=== PATIENT | female | born 1975 | race Caucasian/White ===

== ENCOUNTER 2016-09-30 11:37 | Emergency (ER) | payer BC ==
[2016-09-30 11:43] VITALS: BP 117/75
[2016-09-30 12:35] LABS: APPEARANCE,URINE CLEAR; BILIRUBIN,URINE NEGATIVE (NEGATIVE); GLUCOSE, URINE NEGATIVE (NEGATIVE); KETONES,URINE NEGATIVE (NEGATIVE); LEUKOCYTE ESTERASE,URINE NEGATIVE (NEGATIVE); NITRITE,URINE NEGATIVE (NEGATIVE); PROTEIN,URINE NEGATIVE (NEGATIVE); URINE SPECIFIC GRAVITY 1.009; UROBILINOGEN,URINE NEGATIVE mg/dL (<2.0)
[2016-09-30] MEDS ORDERED: KETOROLAC TROMETHAMINE 60 MG/2 ML SDV IM ONE (12:39)
--- NOTE | 2016-09-30 12:59 | ER Document Report ---
ED General - General Chief Complaint: Pain With Urination Stated Complaint: POSSIBLE UTI OR KIDNEY INFECTION Time Seen by Provider: 09/30/16 12:38 Mode of Arrival: Ambulatory Information source: Patient Notes: 40-year-old female who was recently diagnosed with a UTI that is sensitive to Cipro presents with complaints of continued flank pain. Patient notes she did have a fever previously was given a dose of IM Rocephin and started on ciprofloxacin, patient notes pain is still there fever has since resolved, patient notes she is able to take oral antibiotics was sent in for evaluation. Culture sensitivity is less than 0.25 for Cipro TRAVEL OUTSIDE OF THE [place] IN LAST 30 DAYS: No - HPI Onset: Other - 4 days Onset/Duration: Persistent Quality of pain: Achy Severity: Mild Pain Level: 1 Associated symptoms: None Exacerbated by: Denies Relieved by: Denies Similar symptoms previously: Yes Recently seen / treated by doctor: Yes - Related Data Allergies/Adverse Reactions: No Known Allergies Allergy (Unverified 09/30/16 11:43) Past Medical History - Social History Smoking Status: Former Smoker Cigarette use (# per day): No Chew tobacco use (# tins/day): No Smoking Education Provided: No Frequency of alcohol use: None Drug Abuse: None Family History: Reviewed & Not Pertinent Renal/ Medical History: Denies: Hx Peritoneal Dialysis Psychiatric Medical History: Reports: Hx Depression - anxiety; PTSD Review of Systems - Review of Systems Notes: REVIEW OF SYSTEMS: CONSTITUTIONAL : Denies fever, chills, or sweats. Denies recent illness. EENT: Denies eye, ear, throat, or mouth pain or symptoms. Denies nasal or sinus congestion or discharge. Denies throat, tongue, or mouth swelling or difficulty swallowing. CARDIOVASCULAR: Denies chest pain. Denies palpitations or racing or irregular heart beat. Denies ankle edema. RESPIRATORY: Denies cough, cold, or chest congestion. Denies shortness of breath, difficulty breathing, or wheezing. GASTROINTESTINAL: Denies abdominal pain or distention. Denies nausea, vomiting , or diarrhea. Denies blood in vomitus, stools, or per rectum. Denies black, tarry stools. Denies constipation. GENITOURINARY: Admits to burning with urination flank pain FEMALE GENITOURINARY: Denies vaginal bleeding, heavy or abnormal periods, irregular periods. Denies vaginal discharge or odor. MUSCULOSKELETAL: Denies back or neck pain or stiffness. Denies joint pain or swelling. SKIN: Denies rash, lesions or sores. HEMATOLOGIC : Denies easy bruising or bleeding. LYMPHATIC: Denies swollen, enlarged glands. NEUROLOGICAL: Denies confusion or altered mental status. Denies passing out or loss of consciousness. Denies dizziness or lightheadedness. Denies headache. Denies weakness or paralysis or loss of use of either side. Denies problems with gait or speech. Denies sensory loss, numbness, or tingling. Denies seizures. PSYCHIATRIC: Denies anxiety or stress. Denies depression, suicidal ideation, or homicidal ideation. ALL OTHER SYSTEMS REVIEWED AND NEGATIVE. PHYSICAL EXAMINATION: GENERAL: Well-appearing, well-nourished and in no acute distress. HEAD: Atraumatic, normocephalic. EYES: Pupils equal round and reactive to light, extraocular movements intact, conjunctiva are normal. ENT: Nares patent, oropharynx clear without exudates. Moist mucous membranes. NECK: Normal range of motion, supple without lymphadenopathy LUNGS: Breath sounds clear to auscultation bilaterally and equal. No wheezes rales or rhonchi. HEART: Regular rate and rhythm without murmurs ABDOMEN: Soft, nontender, nondistended abdomen. No guarding, no rebound. No masses appreciated. Female : deferred Musculoskeletal: Normal range of motion, no pitting or edema. No cyanosis. NEUROLOGICAL: Cranial nerves grossly intact. Normal speech, normal gait. Normal sensory, motor exams PSYCH: Normal mood, normal affect. SKIN: Warm, Dry, normal turgor, no rashes or lesions noted. Dictation was performed using [employer] voice recognition software Physical Exam - Vital signs Vitals: Temp Pulse Resp BP Pulse Ox 98.2 F 83 16 117/75 97 09/30/16 11:43 09/30/16 11:43 09/30/16 11:43 09/30/16 11:43 09/30/16 11:43 Course - Re-evaluation Re-evalutation: 09/30/16 12:57 This is an overall very well-appearing female no acute distress, she is already on an antibiotic that is sensitive for culture, patient looks well her urinalysis today is completely clean I do not expect any life-threatening issues and will discharge home with pain control After performing a Medical Screening Examination, I estimate there is LOW risk for ACUTE APPENDICITIS, BOWEL OBSTRUCTION, ACUTE CHOLECYSTITIS, PERFORATED DIVERTICULITIS, INCARCERATED HERNIA, PANCREATITIS, PELVIC INFLAMMATORY DISEASE, PERFORATED ULCER, ECTOPIC , or TUBO-OVARIAN ABSCESS, thus I consider the discharge disposition reasonable. Also, there is no evidence or peritonitis , sepsis, or toxicity. I have reevaluated this patient multiple times and no significant life threatening changes are noted. The patient and I have discussed the diagnosis and risks, and we agree with discharging home with close follow-up with the understanding that symptoms and presentations can change. We also discussed returning to the Emergency Department immediately if new or worsening symptoms occur. We have discussed the symptoms which are most concerning (e.g., bloody stool, fever, changing or worsening pain, vomiting) that necessitate immediate return. - Vital Signs Vital signs: Temp Pulse Resp BP Pulse Ox 98.2 F 83 16 117/75 97 09/30/16 11:43 09/30/16 11:43 09/30/16 11:43 09/30/16 11:43 09/30/16 11:43 Discharge - Discharge Clinical Impression: Flank pain, Dysuria Condition: Stable Disposition: HOME, SELF-CARE Instructions: Antispasmodics ([facility]) Additional Instructions: Follow up with your physician tomorrow for further care or return to the ED IMMEDIATELY if symptoms worsen or new concerns occur. If you cannot afford to follow up with your primary care physician a list of low cost clinics have been provided at the end of your discharge papers as well. Prescriptions: Hydrocodone/Acetaminophen [Anthony 5-325 mg Tablet] 1 tab PO Q6 #10 tablet Phenazopyridine HCl [Pyridium 200 mg Tablet] 200 mg PO TID #15 tablet
== END 2016-09-30 13:25 | disposition home or self-care (01) ==
LOC: ER 11:37
DX: R30.0 Dysuria (principal); R10.9 Unspecified abdominal pain; Z87.891 Personal history of nicotine dependence
CPT/HCPCS: 99283; 96372; 81025; 81001; J1885

== ENCOUNTER 2019-05-05 20:13 | Emergency (ER) | payer BC, OTHER ==
[2019-05-05] MEDS ORDERED: KETOROLAC TROMETHAMINE INJ/PF 30 MG/1 ML SDV IV ONE (20:42)
[2019-05-05] MEDS ORDERED: MECLIZINE HCL 25 MG TABLET PO ONE (20:42)
[2019-05-05] MEDS ORDERED: METOCLOPRAMIDE HCL INJ/PF 10 MG/2 ML SDV IV ONE (20:42)
[2019-05-05] MEDS ORDERED: NORMAL SALINE 1000 ML 1,000 ML IV ONE (20:43)
[2019-05-05] MEDS ORDERED: ONDANSETRON 4 MG TAB.RAPDIS PO ONE (20:43)
--- NOTE | 2019-05-05 20:46 | ER Document Report ---
ED Medical Screen (RME) - General Chief Complaint: Ear Pain Stated Complaint: EAR PAIN,DIZZINESS Time Seen by Provider: 05/05/19 20:37 TRAVEL OUTSIDE OF THE [place] IN LAST 30 DAYS: No - HPI Notes: 05/05/19 20:44 43-year-old female to the emergency department with complaints of bilateral ear pain, dizziness, headache, nausea. She states that the ear pain and dizziness has been ongoing for about 2 weeks and she has been under treatment for sinus infection for that time. She been taking Augmentin which has been giving her diarrhea. She states that this morning she woke up with a migraine headache. S he has typical migraines which she usually takes sumatriptan for. She states that she took her sumatriptan but it did not help. She continues to have nausea with this. She states the headache has now gotten out of control and she came to the emergency department for further evaluation and treatment. She denies any chest pain or shortness of breath. She states she has had some difficulty holding down fluids mainly because she feels so poorly that she has not been able to push them. She does not see an research statistician. She states that she has also been taking steroids for her sinus infection as well but nothing seems to be working. I performed a brief medical screening exam on the patient determined that she will need further evaluation by main side provider. I placed initial orders to help expedite her care. - Related Data Allergies/Adverse Reactions: No Known Allergies Allergy (Unverified 09/30/16 11:43) Past Medical History Renal/ Medical History: Denies: Hx Peritoneal Dialysis Psychiatric Medical History: Reports: Hx Depression - anxiety; PTSD Physical Exam - Vital signs Vitals: Temp Pulse Resp BP Pulse Ox 98.0 F 101 H 16 128/79 H 98 05/05/19 20:30 05/05/19 20:30 05/05/19 20:30 05/05/19 20:30 05/05/19 20:30 Course - Vital Signs Vital signs: Temp Pulse Resp BP Pulse Ox 98.0 F 101 H 16 128/79 H 98 05/05/19 20:30 05/05/19 20:30 05/05/19 20:30 05/05/19 20:30 05/05/19 20:30
[2019-05-05] MEDS ORDERED: KETOROLAC TROMETHAMINE 60 MG/2 ML SDV IM ONE (22:37)
[2019-05-06] MEDS ORDERED: BUTALB/ACETAMINOPHEN/CAFFEINE 1 TAB EACH PO ONE (01:28)
--- NOTE | 2019-05-06 02:38 | ER Document Report ---
Entered by DARIEN STOKES SCRIBE 05/06/19 0042 Acting as scribe for:TOSHA MARTINEZ MD ED General - General Chief Complaint: Headache Stated Complaint: EAR PAIN,DIZZINESS Time Seen by Provider: 05/05/19 20:37 Information source: Patient Notes: 43-year-old female presents to the emergency department complaining of headache that started this morning. Patient reports dizziness, diaphoresis, cough, chest pain and diarrhea. Patient states that she has been taking Augmentin for a sinus infection with four days left of her prescription. Patient complains of bilateral pain that radiated from her "neck to her teeth". Patient adds that she is on migraine medication that she has been unable to take due to "[facility] being out of it". TRAVEL OUTSIDE OF THE [place] IN LAST 30 DAYS: No - Related Data Allergies/Adverse Reactions: No Known Allergies Allergy (Unverified 09/30/16 11:43) Home Medications: Celexa. soma. clonipine. Buspar. seraquil Past Medical History - General Information source: Patient - Social History Smoking Status: Current Every Day Smoker Cigarette use (# per day): Yes Chew tobacco use (# tins/day): No Frequency of alcohol use: Occasional Drug Abuse: None Lives with: Friend Family History: CAD Patient has suicidal ideation: No Patient has homicidal ideation: No Neurological Medical History: Reports: Hx Migraine Musculoskeletal Medical History: Reports Hx Fibromyalgia Psychiatric Medical History: Reports: Hx Anxiety, Hx Depression, Hx Post Traumatic Stress Disorder Past Surgical History: Reports: Hx Appendectomy Review of Systems - Review of Systems Constitutional: No symptoms reported EENT: See HPI, Nose discharge Cardiovascular: See HPI, Chest pain Respiratory: See HPI, Cough Gastrointestinal: See HPI, Diarrhea Genitourinary: No symptoms reported Female Genitourinary: No symptoms reported Musculoskeletal: No symptoms reported Skin: No symptoms reported Hematologic/Lymphatic: No symptoms reported Neurological/Psychological: denies: Homicidal ideation, Suicidal ideation -: Yes All other systems reviewed and negative Physical Exam - Vital signs Vitals: Temp Pulse Resp BP Pulse Ox 98.0 F 101 H 16 128/79 H 98 05/05/19 20:30 05/05/19 20:30 05/05/19 20:30 05/05/19 20:30 05/05/19 20:30 - Notes Notes: Physical Exam: General: Alert, appears well. HEENT: Normocephalic. Atraumatic. PERRL. Extraocular movements intact. Oropharynx clear. TMs are bulging with mild erythema. Bilateral maxillary facial tenderness when touched. Neck: Supple. Non-tender. Respiratory: No respiratory distress. Clear and equal breath sounds bilaterally. Cardiovascular: Regular rate and rhythm. Abdominal: Normal Inspection. Non-tender. No distension. Normal Bowel Sounds. Back: No gross abnormalities. Extremities: Moves all four extremities. Upper extremities: Normal inspection. Normal ROM. Lower extremities: Normal inspection. No edema. Normal ROM. Neurological: Normal cognition. AAOx4. Normal speech. Psychological: Normal affect. Normal Mood. Skin: Warm. Dry. Normal color. Course - Re-evaluation Re-evalutation: 05/06/19 02:35 Patient resting comfortably states she is ready to go. Patient has received 2 Fioricet headache is improved. - Vital Signs Vital signs: Temp Pulse Resp BP Pulse Ox 98.0 F 77 18 129/51 H 100 05/06/19 00:40 05/06/19 00:40 05/06/19 00:40 05/06/19 00:40 05/06/19 00:40 Discharge - Discharge Clinical Impression: Migraine headache, Sinus headache Condition: Stable Disposition: HOME, SELF-CARE Instructions: Headache ([facility]) Additional Instructions: Migraine Headache The physician feels that your symptoms are due to a migraine attack. Migraines are caused by changes in the blood vessels of the head. Arteries go into spasm, often causing warning symptoms that a headache may begin soon. As the spasm goes away, the vessels dilate and throb, causing the pounding pain of a migraine headache. Migraines often cause nausea and vomiting. The treatment of headaches varies with severity and cause of pain. Not all headaches need pain shots -- in fact, there is evidence that using narcotics for headaches may make them worse in the long run. The physician will determine the therapy that's in your best interest for this particular headache. Medications are available that may prevent migraines, or stop them as they first occur. If one medication is not helpful, try another. If migraines are frequent, be patient -- follow the doctor's recommendations. Call the physician if you are worsening, or if new symptoms arise.Sinusitis You have sinusitis, an infection of the sinus cavities of the face. The sinuses are air-filled chambers which open into the inside of the nose. Bacteria and pus fill a sinus, causing pain, drainage, and fever. Sinusitis is treated with antibiotics. Often, expectorants (to thin the sinus mucous) or decongestants (to reduce swelling) are prescribed as well. Healing requires seven to 10 days. Avoid chemical fumes, pollens, dusts, and smoke (especially cigarette smoke). Keep the air humidified in your bedroom and work area and take plenty of liquids by mouth. This condition can be serious if the infection spreads. If your symptoms worsen, or if you develop severe headache, high fever, stiff neck, or a rash, you must call the doctor or return for re-evaluation. Continue Augmentin antibiotics to complete your course for treatment of sinusitis. And also hopefully you will be able to get the Fioricet from your pharmacy once it comes in stock. I personally performed the services described in the documentation, reviewed and edited the documentation which was dictated to the scribe in my presence, and it accurately records my words and actions.
[2019-05-06 02:48] VITALS: BP 131/65
== END 2019-05-06 02:50 | disposition home or self-care (01) ==
LOC: ER 20:13
DX: G43.909 Migraine, unspecified, not intractable, without status migrainosus (principal); R42 Dizziness and giddiness; R61 Generalized hyperhidrosis; R05 Cough; R07.9 Chest pain, unspecified; R19.7 Diarrhea, unspecified; M54.2 Cervicalgia; H92.09 Otalgia, unspecified ear; F17.210 Nicotine dependence, cigarettes, uncomplicated
CPT/HCPCS: 99282; 96372; J3490; J1885; S0119